=== PATIENT | female | born 1950 | race Caucasian/White ===

== ENCOUNTER 2018-04-10 16:00 | Emergency (ER) | payer OTHER ==
--- NOTE | 2018-04-10 17:58 | RAD REPORT ---
EXAM DESCRIPTION: CT - [id number] - 04/10/2018 5:44 pm CLINICAL HISTORY: Trip and fall, head and neck injury COMPARISON: None. TECHNIQUE: Axial 5 mm thick images of the head were obtained. Axial 2 mm thick images of the cervic al spine were obtained with sagittal and coronal reconstruction images generated and reviewed. All CT scans are performed using dose optimization technique as appropriate and may include automated exposure control or mA/KV adjustment according to patient size. FINDINGS: No intracranial hemorrhage, mass, edema or acute intracranial finding. No suspicion for acute infarct ion. Atrophy and chronic ischemic changes are present. These changes are relatively mild. Ventricles are normal. Mastoid air cells and paranasal sinuses are clear. No globe or orbit abnormality seen. Cervical body height and alignment are normal. Minimal disc space narrowing and minimal degenerative spurring. Central canal detail is inherently limited. No fracture or acute bone finding. No paraspinal mass or hematoma. IMPRESSION: Negative CT head examination for acute or significant finding. Negative CT cervical spine examination for acute or significant finding.
[2018-04-10 18:06] LABS: BUN Blood Urea Nitrogen 12 mg/dL (7-18); Bicarbonate 31 mmol/L (21-32); Glucose Level 98 mg/dL (74-106); Potassium 3.8 mmol/L (3.5-5.1); Sodium Level 144 mmol/L (136-145)
[2018-04-10 18:09] LABS: Absolute Lymphocytes (CBC) 2.5 K/uL (0.7-4.9); Absolute Monocytes 0.6 K/uL (0.1-1.3); Absolute Neutrophil 4.5 K/uL (1.8-8.0); Basophils % 0.2 % (0-1.3); Eosinophils % 3.5 % (0-4.4); Hematocrit 41.8 % (36.0-45.0); MPV 9.9 fL (7.6-11.3); Monocytes % 7.1 % (3.3-12.3); RBC Red Blood Cell Count 4.53 M/uL (3.86-4.86)
--- NOTE | 2018-04-10 18:10 | ER ---
Nurse's Notes [facility] Name: Delmy Yip Age: 68 yrs Sex: Female : 1950 Arrival Date: 04/10/2018 Time: 16:03 Bed 13 Private MD: Bart Wong Diagnosis: periorbital laceration;Fall Presentation: 04/10 16:19 Presenting complaint: Patient states: I slipped up a step, I caught myself with my la1 hands mostly but got a small cut under my eye from my galsses and I have some tooth pain as well. Transition of care: patient was not received from another setting of care. Onset of symptoms was April 10, 2018. Risk Assessment: Do you want to hurt yourself or someone else? Patient reports no desire to harm self or others. Initial Sepsis Screen: Does the patient meet any 2 criteria? No. Patient's initial sepsis screen is negative. Does the patient have a suspected source of infection? No. Patient's initial sepsis screen is negative. Care prior to arrival: None. 16:19 Method Of Arrival: Ambulatory la1 16:19 Acuity: INGE 3 la1 Historical: - Allergies: 16:19 No Known Allergies; la1 - PMHx: 16:19 artificial heart valves; la1 - PSHx: 16:19 Cholecystectomy; Hysterectomy; la1 - Immunization history:: Adult Immunizations up to date. - Social history:: Smoking status: Patient/guardian denies using tobacco. - Ebola Screening: : No symptoms or risks identified at this time. Screenin:15 Abuse screen: Denies threats or abuse. Nutritional screening: No deficits noted. em Tuberculosis screening: No symptoms or risk factors identified. Fall Risk None identified. Assessment: 17:20 General: Appears in no apparent distress. comfortable, Behavior is calm, cooperative, em denies LOC, headache, dizziness. Pain: Denies pain. Neuro: Level of Consciousness is awake, alert, obeys commands, Oriented to person, place, time, situation, Denies weakness headache. Cardiovascular: Capillary refill < 3 seconds Patient's skin is warm and dry. Respiratory: Airway is patent Respiratory effort is even, unlabored, Respiratory pattern is regular, symmetrical. Derm: Skin is intact, Skin is pink, warm \T\ dry. Wound noted Other: small superficial laceration noted under the left eye. Musculoskeletal: Range of motion: intact in all extremities. 17:20 Reassessment: I agree with assessment completed by Jack Sanchez LVN . aa5 Vital Signs: 16:21 Pulse 87; Resp 18; Temp 97.6; Pulse Ox 98% ; Weight 88.45 kg; Height 5 ft. 1 in. la1 (154.94 cm); 16:22 BP 160 / 98; la1 17:15 BP 157 / 93; Pulse 76; Resp 18; Pulse Ox 99% on R/A; em 16:21 Body Mass Index 36.84 (88.45 kg, 154.94 cm) la1 ED Course: 16:03 Patient arrived in ED. mr 16:03 Bart Wong DO is Private Physician. mr 16:20 Triage completed. la1 16:20 Arm band placed on right wrist. la1 17:07 Aman Zheng MD is Attending Physician. ps1 17:15 Jack Sanchez LVN is Primary Nurse. em 17:15 Patient has correct armband on for positive identification. Bed in low position. Call em light in reach. Side rails up X2. Pulse ox on. NIBP on. 17:25 Initial lab(s) drawn, by me, sent to lab. T\T\S collected, blood band applied to patient. ms 17:52 CT Head C Spine In Process Unspecified. EDMS 18:09 Bart Wong DO is Referral Physician. ps1 18:34 No provider procedures requiring assistance completed. Patient did not have IV access em during this emergency room visit. Administered Medications: No medications were administered Outcome: 18:10 Discharge ordered by . ps1 18:34 Discharged to home ambulatory, with family. em 18:34 Condition: good 18:34 Discharge instructions given to patient, family, Instructed on discharge instructions, follow up and referral plans. Demonstrated understanding of instructions, follow-up care. 18:34 Patient left the ED. em Signatures: Dispatcher [employer] XAVIER DavidAna Cristina Jack Sanchez LVN DISTANCE EDUCATION TEACHER em Sita Smiley ms FisherCierra, RN RN aa5 Ruiz Hawthorne RN RN la1 Aman Zheng MD MD ps1
--- NOTE | 2018-04-10 18:10 | EDPHYS ---
Physician Documentation [facility] Name: Delmy Yip Age: 68 yrs Sex: Female : 1950 Arrival Date: 04/10/2018 Time: 16:03 Bed 13 Private MD: Bart Wong ED Physician Aman Zheng Historical: - Allergies: 04/10 16:19 No Known Allergies; la1 - PMHx: 16:19 artificial heart valves; la1 - PSHx: 16:19 Cholecystectomy; Hysterectomy; la1 - Immunization history:: Adult Immunizations up to date. - Social history:: Smoking status: Patient/guardian denies using tobacco. - Ebola Screening: : No symptoms or risks identified at this time. Vital Signs: 16:21 Pulse 87; Resp 18; Temp 97.6; Pulse Ox 98% ; Weight 88.45 kg; Height 5 ft. 1 in. la1 (154.94 cm); 16:22 BP 160 / 98; la1 17:15 BP 157 / 93; Pulse 76; Resp 18; Pulse Ox 99% on R/A; em 16:21 Body Mass Index 36.84 (88.45 kg, 154.94 cm) la1 MDM: 17:14 Patient medically screened. ps1 04/10 17:08 Order name: Basic Metabolic Panel; Complete Time: 18:08 ps1 04/10 17:08 Order name: CBC with Diff; Complete Time: 18:29 ps1 04/10 17:08 Order name: CT Head C Spine; Complete Time: 18:08 ps1 04/10 17:08 Order name: Creatinine for Radiology; Complete Time: 18:08 ps1 04/10 17:08 Order name: Type And Screen ps1 04/10 17:08 Order name: PT-INR; Complete Time: 18:29 ps1 04/10 17:08 Order name: Labs collected and sent; Complete Time: 17:26 ps1 Administered Medications: No medications were administered Disposition: 04/10/18 18:10 Discharged to Home. Impression: periorbital laceration, Fall. - Condition is Stable. - Discharge Instructions: Facial Laceration. - Medication Reconciliation Form, Thank You Letter, Antibiotic Education, Prescription Opioid Use form. - Follow up: Bart Wong DO; When: As needed; Reason: Recheck today's complaints, Continuance of care, Re-evaluation by your physician. Follow up: Emergency Department; When: As needed; Reason: Worsening of condition. - Problem is new. - Symptoms have improved. Addendum: 04/13/2018 10:18 Addendum: 68 y/o F presenting with fall. Tripped on curb, on warfarin. Small abrasion p s1 to left eye. No LOC. Abrasions to hands. Pain mild. ROS: no headache, fever, chills, n,v,d, no edema PHY: NC mild contusion and abrasion to left periorbital area. Does not need suture. RRR, CTAB, Soft nt, NO CCE. POC: CT head and neck neg. Stable for discharge. . Signatures: Dispatcher [employer] EDMS Jack Sanchez, EDGER OPERATOR EDGER OPERATOR Ruiz Perez, RN RN la1 Aman Zheng MD MD ps1 Corrections: (The following items were deleted from the chart) 04/10 18:34 18:10 04/10/2018 18:10 Discharged to Home. Impression: periorbital laceration; Fall. em Condition is Stable. Forms are Medication Reconciliation Form, Thank You Letter, Antibiotic Education, Prescription Opioid Use. Follow up: Bart Wong; When: As needed; Reason: Recheck today's complaints, Continuance of care, Re-evaluation by your physician. Follow up: Emergency Department; When: As needed; Reason: Worsening of condition. Problem is new. Symptoms have improved. ps1
[2018-04-10 18:11] LABS: Protime INR 2.88
== END 2018-04-10 18:34 | disposition home or self-care (01) ==
LOC: ER 16:00
DX: S00.212A Abrasion of left eyelid and periocular area, initial encounter (principal); S60.512A Abrasion of left hand, initial encounter; S60.511A Abrasion of right hand, initial encounter; W01.198A Fall on same level from slipping, tripping and stumbling with subsequent striking against other object, initial encounter; Z79.01 Long term (current) use of anticoagulants
CPT/HCPCS: 36415; 70450; 72125; 80048; 85025; 85610; 86850; 86900; 86901; 99283